=== PATIENT | female | born 1985 | race Caucasian/White ===

== ENCOUNTER 2021-04-14 18:26 | Emergency (ER) | payer BC ==
[~2021-04-14] VITALS: Ht 154.9 cm; Wt 68.2 kg
[2021-04-14 18:42] LABS: BASOPHILS 0.8 % (0-2); EOSINOPHILS 1.5 % (0-7); HEMATOCRIT 39.8 % (36.0-48.0); HEMOGLOBIN 13.7 g/dL (12-16); LYMPHOCYTES 35.3 % (15-50); MCH 29.6 pg (26.0-34.0); MCHC 34.4 g/dL (31.0-37.0); MCV 86.1 fL (80.0-100.0); MEAN PLATELET VOLUME 7.5 fL (7.4-10.4); MONOCYTES 7.4 % (2-11); PLATELET COUNT 230 10x3/uL (130-400); RBC 4.62 10x6/uL (4.00-5.40); RDW 12.7 % (11.5-14.5); WBC 7.3 10x3/uL (4.8-10.8)
[2021-04-14 18:52] LABS: CALC OSMOLALITY 279 mosm/kg (275-300); CALCIUM 8.5 mg/dL (8.5-10.1); CARBON DIOXIDE 29.3 mmol/L (21.0-32.0); CHLORIDE - SERUM 102 mmol/L (98-107); CREATININE - SERUM 0.7 mg/dL (0.6-1.3); GLUCOSE 92 mg/dL (74-106); SODIUM 140 mmol/L (136-145); UREA NITROGEN 14 mg/dL (7-18); eGFR NON AFRICAN AMERICAN > 90 mL/min (90-120)
[2021-04-14 18:57] VITALS: BP 121/83; Ht 154.9 cm; Wt 68.2 kg
[2021-04-14] MEDS ORDERED: LEVOXYL75 MCG PO (18:58)
[2021-04-14] MEDS ORDERED: ATARAX 25 MG TA25 MG PO (18:59)
[2021-04-14 19:01] LABS: ALBUMIN 4.2 g/dL (3.4-5.0); ALKALINE PHOSPHATASE 51 U/L (30-120); ALT (SGPT) 36 U/L (10-68); AMYLASE - SERUM 54 U/L (25-115); BILIRUBIN - TOTAL 0.45 mg/dL (0.2-1.3); LIPASE 183 U/L (73-393)
[2021-04-14 19:02] LABS: TROPONIN-I < 0.017 ng/mL (0.000-0.060)
[2021-04-14 22:42] LABS: BILIRUBIN NEGATIVE (NEGATIVE); KETONE TRACE mg/dL (< 1+); NITRITE NEGATIVE (NEGATIVE); PH 6.5 (5.0-8.0); UROBILINOGEN NORMAL mg/dL (< 2)
[2021-04-14 22:49] LABS: HCG URINE NEGATIVE (NEGATIVE)
[2021-04-14] MEDS ORDERED: VALTREX1000 MG PO (23:05)
[2021-04-14] MEDS ORDERED: PYRIDIUM100 MG PO (23:12)
[2021-04-15] MEDS ORDERED: ZOVIRAX 5% CREAM5 GM TOPICAL (00:42)
== END 2021-04-15 00:50 | disposition home or self-care (01) ==
LOC: D.ER 18:26
PROVIDERS: Family Medicine
DX: R30.0 Dysuria (principal)